=== PATIENT | female | born 2000 | race Caucasian/White ===

== ENCOUNTER 2024-07-15 08:43 | Emergency (ER) | payer OTHER ==
[2024-07-15] MEDS: Diphtheria,Pertussis(Acell),Tetanus Vaccine 0.5 ML Syringe IM ONE (08:58)
[2024-07-15] MEDS: Lidocaine 1% 5 ML VIAL INJECT ONE (09:00)
== END 2024-07-15 09:42 | disposition home or self-care (01) ==
LOC: MW.ED 08:43
DX: S61.310A Laceration without foreign body of right index finger with damage to nail, initial encounter (principal); Z23 Encounter for immunization; X58.XXXA Exposure to other specified factors, initial encounter; Y93.89 Activity, other specified
CPT/HCPCS: 12001; 90471; 90715; 99282; 99282-25; J2003